=== PATIENT | female | born 1955 | race Two or more races ===

== ENCOUNTER 2018-08-23 14:53 | Emergency (ER) | payer OTHER ==
[~2018-08-23] VITALS: Ht 157.5 cm; Wt 59.0 kg
[~2018-08-23 14:53] MED LIST: ATIVAN1 MG; ENALAPRIL MALEA10 MG; HYDROCHLOROTHIA25 GM; NORTUSS-EX LIQ118 ML PO; SYNTHROID50 MCG
[2018-08-23] MEDS ORDERED: LASIX20 MG (15:07)
[2018-08-23] MEDS ORDERED: CLONAZEPAM2 MG (15:08)
== END 2018-08-23 19:15 | disposition home or self-care (01) ==
LOC: ER 14:53
DX: R51 Headache (principal)